=== PATIENT | male | born 1990 | race Caucasian/White ===

== ENCOUNTER 2018-08-08 03:19 | Emergency (ER) | payer SELFPAY ==
[~2018-08-08] VITALS: Ht 170.2 cm; Wt 84.4 kg
[2018-08-08 03:26] VITALS: BP 144/75
--- NOTE | 2018-08-08 03:26 | NUR ---
TO BED # 4 AMBULATORY , REPORT GIVEN TO CATHY LOVELL
[2018-08-08] MEDS ORDERED: NACL 0.9% 1,000 ML IV SCH (03:39)
[2018-08-08] MEDS ORDERED: MORPHINE SULFATE 4 MG/ML SYR IVP ONE (03:40)
[2018-08-08] MEDS ORDERED: PANTOPRAZOLE 40 MG INJ VIAL IVP ONE (03:40)
[2018-08-08] MEDS ORDERED: ONDANSETRON 4 MG/2 ML VIAL IVP ONE (03:40)
--- NOTE | 2018-08-08 03:40 | NUR ---
PT PRESENTS TO ED WITH C/O ABDOMINAL PAIN AND NAUSEA X 3 DAYS. ABD IS SOFT, NON-TENDER. BOWEL SOUNDS HYPOACTIVE TO ALL QUADRANTS. PT REPROTS PAIN UPON PALPATION. PT PLACED INTO BED, PENDING MD SANCHEZ. PMH--DENIES RX--DENIES
[2018-08-08 04:21] LABS: APPEARANCE,URINE CLEAR (CLEAR); BILIRUBIN,URINE NEGATIVE (NEGATIVE); BLOOD, URINE NEGATIVE (NEGATIVE); LEUKOCYTE ESTERASE ,URINE NEGATIVE (NEGATIVE); NITRITE, URINE NEGATIVE (NEGATIVE); UGLUCOSE NEGATIVE (NEGATIVE)
[2018-08-08 04:28] LABS: CARBON DIOXIDE 25.9 mmol/L (21-32); CREATININE 1.3 mg/dL (0.7-1.3); POTASSIUM 3.9 mmol/L (3.5-5.1)
[2018-08-08 04:33] LABS: BASOPHILS # (AUTO) 0.1 K/uL (0.00-0.22); BASOPHILS % (AUTO) 0.7 % (0.0-2.0); EOSINOPHILS # (AUTO) 0.1 K/uL (0-0.4); EOSINOPHILS % (AUTO) 1.1 % (0.0-4.0); HEMATOCRIT 44.4 % (36-52); HEMOGLOBIN 14.9 g/dL (12.0-18.0); LYMPHOCYTES # (AUTO) 1.9 K/uL (2.0-11.5); LYMPHOCYTES % (AUTO) 18.5 % (20.5-51.1); MEAN CORPUSCULAR HEMOGLOBIN 29 pg (27-31); MEAN CORPUSCULAR HGB CONC 33 g/dL (33-37); MEAN CORPUSCULAR VOLUME 88.1 fL (80-94); MONOCYTES # (AUTO) 0.6 K/uL (0.8-1.0); MONOCYTES % (AUTO) 5.7 % (1.7-9.3); NEUTROPHILS # (AUTO) 7.6 K/uL (1.8-7.7); PLATELET COUNT (AUTO) 296 K/uL (140-450); RED BLOOD CELL COUNT(AUTO) 5.04 MIL/uL (4.20-6.10); RED CELL DISTRIBUTION WIDTH 13.2 % (11.6-13.7); WHITE BLOOD COUNT (AUTO) 10.2 K/uL (4.8-10.8)
[2018-08-08 04:35] LABS: ALBUMIN 3.9 g/dL (3.4-5.0); TOTAL BILIRUBIN 0.2 mg/dL (0.0-1.0)
[2018-08-08 04:38] LABS: COLOR,URINE STRAW (YELLOW)
[2018-08-08 05:32] VITALS: BP 138/70
--- NOTE | 2018-08-08 05:32 | NUR ---
Patient discharged with v/s stable. Written and verbal after care instructions given and explained. Patient alert, oriented and verbalized understanding of instructions. Ambulatory with steady gait. All questions addressed prior to discharge. ID band removed. Patient advised to follow up with PMD. Rx of PROTONIX AND ZOFRAN given. Patient educated on indication of medication including possible reaction and side effects. Opportunity to ask questions provided and answered.
== END 2018-08-08 05:32 | disposition home or self-care (01) ==
LOC: MED 03:19
DX: R10.13 Epigastric pain (principal); R11.2 Nausea with vomiting, unspecified
CPT/HCPCS: 36415; 74176; 80053; 81003; 83690; 85025; 96361; 96374; 96375; 99284; C9113; J2270; J2405; J7030

== ENCOUNTER 2023-08-24 20:12 | Emergency (ER) | payer SELFPAY ==
[~2023-08-24] VITALS: Ht 167.6 cm; Wt 81.6 kg
[2023-08-24 20:34] VITALS: BP 137/84; PULSE 88; RESP 18; TEMP 98; O2SAT 97
[2023-08-24] MEDS ORDERED: IBUPROFEN 800 MG TAB PO ONE (21:40)
[2023-08-24] MEDS ORDERED: PROM118S5 PO (21:41)
[2023-08-24] MEDS ORDERED: IBUP-2218 PO (21:41)
[2023-08-24 22:15] VITALS: BP 137/84; PULSE 88; RESP 18; TEMP 98; O2SAT 97
== END 2023-08-24 22:15 | disposition home or self-care (01) ==
LOC: MED 20:12
DX: B34.9 Viral infection, unspecified (principal); R03.0 Elevated blood-pressure reading, without diagnosis of hypertension; Z79.899 Other long term (current) drug therapy; Z79.1 Long term (current) use of non-steroidal anti-inflammatories (NSAID)
CPT/HCPCS: 99283